=== PATIENT | male | born 1980 | race Two or more races ===

== ENCOUNTER 2019-08-08 13:32 | Emergency (ER) | payer OTHER ==
[~2019-08-08] VITALS: Ht 188 cm; Wt 100.0 kg
[2019-08-08 14:08] VITALS: BP 145/89
[2019-08-08] MEDS ORDERED: SURGICEL HEMOSTAT 4X8 EACH. TP ONE (14:30)
[2019-08-08] MEDS ORDERED: DIPH,PERTUSS(ACELL),TET VAC/PF 0.5 ML SYRINGE. VAX IM ONE (14:30)
--- NOTE | 2019-08-08 14:33 | RAD ---
Three views right finger: Clinical History: Pain status post injury. Technique: AP view of the hand, as well as lateral and oblique collimated views of the little finger were obtained. Comparison: None. Findings: There is avulsion of the skin from the tip of the middle finger eccentric both anteriorly and laterally. The visualized osseous structures appear grossly intact. There is no radiopaque foreign body. Impression: No acute bony abnormality identified. Electronically signed by: Juan Francisco Renner III, MD (08/08/2019 2:30 PM) [id number]
--- NOTE | 2019-08-08 14:35 | PHYS DOC ---
Past Medical History Past Medical History: No Pertinent History Past Surgical History: No Surgical History Smoking Status: Current Some Day Smoker Alcohol Use: Occasionally General Adult EDM: Chief Complaint: LACERATION/AVULSION HPI: HPI: 39-year-old otherwise healthy male presents with a right third finger injury. Using a skill saw today he accidentally cut the tip of his right third finger. He denies any other injuries. He does not know when his last tetanus was he is able to flex his finger at the DIP. He denies any nail injury. [] Review of Systems: Review of Systems: Constitutional: Denies fever or chills. [] Eyes: Denies change in visual acuity. [] HENT: Denies nasal congestion or sore throat. [] Respiratory: Denies cough or shortness of breath. [] Cardiovascular: Denies chest pain or edema. [] GI: Denies abdominal pain, nausea, vomiting, bloody stools or diarrhea. [] : Denies dysuria. [] Musculoskeletal: Denies back pain or joint pain. [] Integument: Per HPI. [] Neurologic: Denies headache, focal weakness or sensory changes. [] Endocrine: Denies polyuria or polydipsia. [] Lymphatic: Denies swollen glands. [] Psychiatric: Denies depression or anxiety. [] Heart Score: Risk Factors: Risk Factors: DM, Current or recent (<one month) smoker, HTN, HLP, family history of CAD, obesity. Risk Scores: Score 0 - 3: 2.5% MACE over next 6 weeks - Discharge Home Score 4 - 6: 20.3% MACE over next 6 weeks - Admit for Clinical Observation Score 7 - 10: 72.7% MACE over next 6 weeks - Early Invasive Strategies Allergies: Allergies: Allergies Coded Allergies Type Severity Reaction Last Updated Verified No Known Drug Allergies 08/08/19 No Physical Exam: PE: Constitutional: Well developed, well nourished, no acute distress, non-toxic appearance. [] HENT: Normocephalic, atraumatic, bilateral external ears normal, oropharynx moist, no oral exudates, nose normal. [] Eyes: PERRLA, EOMI, conjunctiva normal, no discharge. [] Neck: Normal range of motion, no tenderness, supple, no stridor. [] Cardiovascular:Heart rate regular rhythm, no murmur [] Lungs & Thorax: Bilateral breath sounds clear to auscultation [] Abdomen: Bowel sounds normal, soft, no tenderness, no masses, no pulsatile masses. [] Skin: Warm, dry, no erythema, no rash. [] Back: No tenderness, no CVA tenderness. [] Extremities: The pad of the distal third finger is avulsed the margins are wide there is no possibility to reapproximate the wound edges the flexor tendon is intact. [] Neurologic: Alert and oriented X 3, normal motor function, normal sensory function, no focal deficits noted. [] Psychologic: Affect normal, judgement normal, mood normal. [] Current Patient Data: Vital Signs: Vital Signs Date Time Temp Pulse Resp B/P (MAP) Pulse Ox O2 Delivery O2 Flow Rate FiO2 08/08/19 14:08 98.1 83 18 145/89 (107) 97 Room Air 98.1 EKG: EKG: [] Radiology/Procedures: Radiology/Procedures: Finger x-ray: No bony injury as interpreted by me [] Course & Med Decision Making: Course & Med Decision Making Pertinent Labs and Imaging studies reviewed. (See chart for details) [ED course: Evaluation reveals that the patient has an avulsed pad of the distal right third finger there is no bony involvement flexor tendon is intact the wound was washed soaked and then dressed using Surgicel and a bulky dressing talk to the patient about wound care.] Dragon Disclaimer: Dragon Disclaimer: This electronic medical record was generated, in whole or in part, using a voice recognition dictation system. Departure Departure Impression: Primary Impression: Avulsion of skin of finger without complication Qualified Codes: S61.209A - Unspecified open wound of unspecified finger without damage to nail, initial encounter Disposition: HOME, SELF-CARE Condition: STABLE Patient Instructions: Finger Avulsion Additional Instructions: Keep wound clean and dry. It is appropriate to use Neosporin 2-3 times daily. The wound will heal but will take several weeks. ANTONI KANG DO Aug 08, 2019 14:35
== END 2019-08-08 15:16 | disposition home or self-care (01) ==
LOC: ER 13:32
DX: S61.302A Unspecified open wound of right middle finger with damage to nail, initial encounter (principal); F17.200 Nicotine dependence, unspecified, uncomplicated; W26.8XXA Contact with other sharp object(s), not elsewhere classified, initial encounter; Y93.89 Activity, other specified; Y92.89 Other specified places as the place of occurrence of the external cause; Y99.8 Other external cause status
CPT/HCPCS: 11730; 73140; 90471; 90715; 99284